=== PATIENT | female | born 1990 | race Hispanic/Latino ===

== ENCOUNTER 2018-05-28 00:58 | Emergency (ER) | payer BC ==
[~2018-05-28] VITALS: Ht 160 cm; Wt 81.6 kg
[2018-05-28] MEDS ORDERED: CLINDAMYCIN HCL 150 MG CAP PO ONE (01:15)
[2018-05-28] MEDS ORDERED: MUPIROCIN 2% OINT 22 GM TUBE TOP ONE (01:15)
[2018-05-28] MEDS ORDERED: TRIMETHOPRIM/SULFAMETHOXAZOLE 160-800 MG TAB PO ONE (01:30)
== END 2018-05-28 01:57 | disposition home or self-care (01) ==
LOC: FSED 00:58
DX: T81.31XA Disruption of external operation (surgical) wound, not elsewhere classified, initial encounter (principal)
CPT/HCPCS: 99283